=== PATIENT | female | born 1995 ===

== ENCOUNTER 2025-01-03 23:39 | Emergency (ER) | payer SELFPAY ==
[~2025-01-03] VITALS: Ht 152.4 cm; Wt 63.5 kg
[2025-01-04] MEDS ORDERED: METPRE4DP PO (03:27)
[2025-01-04] MEDS ORDERED: EPIPEN0.3 MG/0.1 IM (03:27)
== END 2025-01-04 03:45 | disposition home or self-care (01) ==
LOC: ER 23:39
DX: J02.9 Acute pharyngitis, unspecified (principal)
CPT/HCPCS: 96372; 99283; J2919